=== PATIENT | female | born 1985 | race Caucasian/White ===

== ENCOUNTER 2019-01-13 19:38 | Inpatient (IN) ==
[~2019-01-13 19:38] MED LIST: Lactated Ringers-OB Dept 2,000 ML ONE
[2019-01-13] MEDS ORDERED: ePHEDrine Inj 50 MG/ML AMP IVP PRN (20:49)
[2019-01-13] MEDS ORDERED: Naloxone Inj 0.01 MG in Sodium Chloride 0.9% vial 1 ML IVP PRN (20:49)
[2019-01-13] MEDS ORDERED: Carboprost Inj 250 MCG/ML AMP IM PRN (20:49)
[2019-01-13] MEDS ORDERED: Nalbuphine Inj 20 MG/ML Ampule IVP PRN (20:49)
[2019-01-13] MEDS ORDERED: MISOPROSTOL 200 MCG TABLET RECTAL PRN (20:49)
[2019-01-13] MEDS ORDERED: FAMOTIDINE 20 MG/2 ML VIAL IVP PRN ×2 (20:49)
[2019-01-13] MEDS ORDERED: LIDOCAINE HCL 2 % 10 ML JELLY URO-JECT TOPICAL PRN (20:49)
[2019-01-13] MEDS ORDERED: Metoclopramide Inj 10 MG/2 ML VIAL IV PRN (20:49)
[2019-01-13] MEDS ORDERED: diphenhydrAMINE 50 MG/1 ML VIAL IVP PRN (20:49)
[2019-01-13] MEDS ORDERED: LIDOCAINE W/ SODIUM BICARB 0.5 ML SYR SUBD PRN (20:49)
[2019-01-13] MEDS ORDERED: Lidocaine 1% 10 MG/ML - 20 ML VIAL SUBCUT PRN (20:49)
[2019-01-13] MEDS ORDERED: CITRIC ACID/SODIUM CITRATE 30 ML CUP PO PRN (20:49)
[2019-01-13] MEDS ORDERED: METHYLERGONOVINE MALEATE 0.2 MG/1 ML VIAL IM PRN (20:49)
[2019-01-13] MEDS ORDERED: ONDANSETRON 4 MG/2 ML VIAL IVP PRN (20:49)
[2019-01-13] MEDS ORDERED: BUTORPHANOL TARTRATE 2 MG/1 ML VIAL IVP PRN (20:49)
[2019-01-13] MEDS ORDERED: CefOXitin Inj 2 GM in Sodium Chloride 0.9% 100 ML IV PRN (20:49)
[2019-01-13] MEDS ORDERED: fentaNYL Inj 100 MCG/2 ML VIAL IV PRN (20:49)
[2019-01-13] MEDS ORDERED: TERBUTALINE SULFATE 1 MG/1 ML SDV SUBCUT PRN (20:49)
[2019-01-13] MEDS ORDERED: NALOXONE 0.4 MG/1 ML VIAL IVP PRN (20:49)
[2019-01-13] MEDS ORDERED: Phenylephrine Inj 50 MCG in Sodium Chloride 0.9% vial 0.5 ML IVP PRN (20:49)
[2019-01-13] MEDS ORDERED: OXYTOCIN 10 UNIT/1 ML IM PRN (20:49)
[2019-01-13] MEDS ORDERED: CALCIUM CARBONATE 500 MG (TUMS) CHEWABLE TABLET PO PRN (20:49)
[2019-01-13] MEDS ORDERED: Oxytocin 20 Units + LR 20 UNIT/1,000 ML BAG IV SCH (21:00)
[2019-01-13] MEDS: Misoprostol Tab 100 MCG TAB VAGINAL SCH (21:07)
[2019-01-13 21:41] LABS: Hemoglobin [HGB] 11.5 g/dL (12.0-16.0); MEAN CORPUSCULAR HGB CONC 33.8 g/dL (33-37); MEAN CORPUSCULAR VOLUME 92.9 FL (81-99); MEAN PLATELET VOLUME 10.9 FL (7.4-12.2); RED BLOOD COUNT 3.66 10^6/uL (4.20-5.40)
[2019-01-13] MEDS ORDERED: diphenhydrAMINE 25 MG CAPSULE PO ONE (23:16)
[2019-01-14] MEDS: Misoprostol Tab 100 MCG TAB VAGINAL SCH (01:19)
[2019-01-14] MEDS: Lactated Ringers-OB Dept 1,000 ML PRIMARY IV SCH ×2 (01:40→04:57)
[2019-01-14] MEDS ORDERED: BUPivacaine Inj 0.5% PF (5mg/ml) 30ml vial ONE (05:24)
[2019-01-14] MEDS ORDERED: fentaNYL 2 MCG/BUPIVACAINE 0.0625%/NS 0.9% 250 ML BAG EPIDURAL SCH (05:45)
--- NOTE | 2019-01-14 05:50 | CRNA.PROCE ---
Central Neuraxis Block Placemt - - Type of Block: Epidural Reason for Block: Analgesia Moniters Used During Block: SPO2, NIBP Positioning: Sitting Skin Prep Used: Betadine Draped: Yes Skin Infiltration - Enter Amount Used in Comment Field: 1% Xylocaine (mL): Yes (3) Spinal Needle Used: 18 Hustead 80 mm Local Anesthetic - Enter Amount Used in Comment Field: Other Local Anesthetic: Yes (Bupivacaine 0.25% 8ml) Additive Used - Enter Amount Used in Comment Field: Fentanyl (mcg): Yes (100) Number of Centimeters Catheter Threaded: 3 Bioclusive Dressing Applied: Yes Anesthesia Time - Other Weight: 73.573 kg Height: 7 ft 9 in Body Mass Index (BMI): 13.1
[2019-01-14] MEDS ORDERED: Fent/Bupiv 2mcg/0.0625% Epid 250 ML ONE (05:54)
[2019-01-14] MEDS ORDERED: LIDOCAINE MPF 2% - 5 ML (20 MG/1 ML) ONE (06:51)
--- NOTE | 2019-01-14 07:49 | OB.DEL.SUM ---
Delivery Note Delivery Summary: 33 yo G2 now P2 was admitted last night at 40 0/7 weeks gestation for elective IOL. uncomplicated. She received two doses of 25 mcg cytotec pv overnight and changed from 2/50/-2 to 3-4/90/-1 and was phyllis consistently. She then had an epidural placed at about 0500. At about 0645 she was 8 cm dilated and had SROM with clear fluid. She was complete about 0700. She pushed with a couple of contractions. When she pushed to almost the heart tones dropped to the 70s and were not recovering between contractions. She was instructed to push and then at 0712 delivered a TAGA male in ANA position over an intact perineum. A nuchal cord x2 was noted and reduced prior to delivery of the rest of the body. was initially cyanotic and limp but was stimulated and transitioned quickly. He was placed on mom's abdomen. Pitocin was administered. Cord clamping was delayed 1 minute. The cord was doubly clamped and then cut by the father Chin. Cord gases were collected. Cord blood was then collected. Her placenta delivered spontaneously, intact, with a 3 vessel cord at 0720. Her vagina was inspected and she had a R periurethral laceration that was repaired in standard fashion with 3-0 vicryl rapide. She had a R periurethral and perineal hemostatic skid coronado. EBL 300 cc. Mom and baby tolerated delivery well. Apgars 8, 10. - Patient Problems (1) Vaginal delivery Current Visit: Yes Status: Acute Code(s): O80 - Encounter for full-term uncomplicated delivery
[2019-01-14] MEDS ORDERED: GLYCERIN/WITCH HAZEL 1 BOX TOPICAL PRN (08:41)
[2019-01-14] MEDS ORDERED: CALCIUM CARBONATE 500 MG (TUMS) CHEWABLE TABLET PO PRN (08:41)
[2019-01-14] MEDS ORDERED: BENZOCAINE/MENTHOL SPRAY 56 GM BOTTLE TOPICAL PRN (08:41)
[2019-01-14] MEDS ORDERED: LANOLIN HPA 40 GM TUBE TOPICAL PRN (08:41)
[2019-01-14] MEDS ORDERED: diphenhydrAMINE 25 MG CAPSULE PO PRN (08:41)
[2019-01-14] MEDS ORDERED: Nalbuphine Inj 20 MG/ML Ampule IVP PRN (08:41)
[2019-01-14] MEDS ORDERED: Oxytocin 20 Units + LR 20 UNIT/1,000 ML BAG IV SCH (08:41)
[2019-01-14] MEDS ORDERED: LIDOCAINE HCL 2 % 10 ML JELLY URO-JECT TOPICAL PRN (08:41)
[2019-01-14] MEDS ORDERED: Ondansetron ODT Tab 4 MG TAB PO PRN (08:41)
[2019-01-14] MEDS ORDERED: diphenhydrAMINE 50 MG/1 ML VIAL IVP PRN (08:41)
[2019-01-14] MEDS ORDERED: ACETAMINOPHEN 325 MG TABLET PO PRN (08:41)
[2019-01-14] MEDS ORDERED: ONDANSETRON 4 MG/2 ML VIAL IVP PRN (08:41)
[2019-01-14] MEDS ORDERED: Lidocaine 1% 10 MG/ML - 20 ML VIAL INTRADERM PRN (08:41)
--- NOTE | 2019-01-14 10:04 | CRNA.PROGR ---
Anesthesia Note - Progress Notes Anesthesia Progress Note: 5 ml of 2% lidocaine mpf via epidural catheter at 0650 for analgesia.
[2019-01-14] MEDS: IBUPROFEN 800 MG TABLET PO PRN ×2 (10:57→18:35)
[2019-01-14 15:23] VITALS: RESP 16
[2019-01-15] MEDS: IBUPROFEN 800 MG TABLET PO PRN (04:40)
[2019-01-15 04:48] VITALS: BP 114/71; TEMP 98.4; O2SAT 98
[2019-01-15 05:35] LABS: MEAN CORPUSCULAR HGB CONC 33.3 g/dL (33-37); MEAN PLATELET VOLUME 11.1 FL (7.4-12.2); RED BLOOD COUNT 3.51 10^6/uL (4.20-5.40)
--- NOTE | 2019-01-15 08:48 | DCSUMMARY ---
Hospitalization Summary Admit Date: 01/13/19 Discharge Date: 01/15/19 Delivery Type: Vaginal Hospital Course: 33 yo G2 now P2 admitted at 40 0/7 weeks gestation for elective IOL. She was administered 2 doses of 25 mcg cytotec pv, then progressed rapidly after epidural placement. She delivered a TAGA male after just a couple of pushes. She had a R periurethral laceration that was repaired. / Postop Complications: none appparent Complications: none apparent Exam - Vitals Vital Signs: Vital Signs Temperature 98.4 F Temperature Source Oral Pulse Rate [Pulse Oximeter 63 Right] Pulse Rate [Rt hand] 54 Respiratory Rate 16 Blood Pressure [Right Arm] 114/71 Pulse Ox [Rt hand] 100 Pulse Ox 98 Oxygen Delivery Method [Rt Room Air hand] Oxygen Delivery Method Room Air Height 5 ft 9 in Weight 162 lb 3.2 oz - General General Appearance: No Acute Distress, Cooperative - Respiratory Respiratory Exam: POSITIVE: Clear to Auscultation - Bilaterally, Breathing Non Labored - Cardiovascular Cardiovascular Exam: POSITIVE: RRR - GI/Abdominal GI/Abdominal Exam: POSITIVE: Normal Bowel Sounds - Extremities Extremities Exam: POSITIVE: No Edema Present, Negative Cecy's sign - Neurological Neurological Exam: POSITIVE: Alert, Oriented x 3 - Psychiatric Psychiatric Exam: POSITIVE: Normal Affect, Normal Mood - Integumentary Integumentary Exam: POSITIVE: Normal Color Data Peritnent Studies: 01/13/19 01/15/19 21:10 04:37 WBC 7.92 9.73 Hgb 11.5 L 11.0 L Hct 34.0 L 33.0 L Plt Count 167 155 Patient Problems - Patient Problem List (1) Vaginal delivery Status: Acute Code(s): O80 - Encounter for full-term uncomplicated delivery Support Text: 33 yo G2 now P2, PPD 1. Breast feeding Pain well controlled Minimal lochia To continue ferrous gluconate for mild anemia x1 month Still considering pp contraception, perhaps POP F/u 8 weeks pp Category: Medical
[2019-01-15] MEDS ORDERED: Prenatal Multivitamin Tab 1 TAB TAB PO SCH (09:00)
[2019-01-15] MEDS ORDERED: DOCUSATE 100 MG CAPSULE PO SCH (09:00)
== END 2019-01-15 10:32 | disposition home or self-care (01) | DRG 807 ==
LOC: OBIP 19:54
PROVIDERS: ADMIT Student in an Organized Health Care Education/Training Program; ATTEND Student in an Organized Health Care Education/Training Program